=== PATIENT | male | born 1955 | race African-American/Black ===

== ENCOUNTER 2020-09-26 04:26 | Day surgery (SDC) | payer OTHER ==
[2020-09-22 16:30] VITALS: BMI 28.3
[2020-09-26] MEDS ORDERED: MIDAZOLAM HCL 2 MG/2 ML SINGLE DOSE VIAL ONE (10:02)
[2020-09-26] MEDS ORDERED: SUCCINYLCHOLINE CHLORIDE 200 MG/10 ML SYRINGE ONE (10:02)
[2020-09-26] MEDS ORDERED: PROPOFOL 20 ML ONE ×3 (10:02→10:22)
[2020-09-26] MEDS ORDERED: ONDANSETRON 4 MG/2 ML VIAL ONE (10:02)
[2020-09-26] MEDS ORDERED: DEXAMETHASONE SOD PHOSPHATE 4 MG/1 ML VIAL ONE (10:02)
[2020-09-26] MEDS ORDERED: ceFAZolin SODIUM 1 GM VIAL ONE (10:29)
[2020-09-26] MEDS ORDERED: ceFAZolin SODIUM 1 GM VIAL IVPB ONE (10:30)
[2020-09-26] MEDS ORDERED: oxyCODONE HCL 5 MG TABLET PO PRN (11:47)
[2020-09-26] MEDS ORDERED: ONDANSETRON 4 MG/2 ML VIAL IVPUSH PRN (11:47)
[2020-09-26 12:39] VITALS: TEMP 97.8
[2020-09-26 15:52] VITALS: BP 132/79; PULSE 56
== END 2020-09-26 14:45 | disposition home or self-care (01) ==
LOC: JASU-SURG 04:26
PROVIDERS: ATTEND Urology
PROC: 0TBB8ZX Excision of Bladder, Via Natural or Artificial Opening Endoscopic, Diagnostic (ICD-10-PCS; principal; 2020-09-26 10:00)
DX: N40.0 Benign prostatic hyperplasia without lower urinary tract symptoms (principal); R31.29 Other microscopic hematuria
CPT/HCPCS: 87086; 88108; 88305-TC; 94760